=== PATIENT | female | born 1960 | race Caucasian/White ===

== ENCOUNTER 2021-10-21 12:53 | Inpatient (IN) | payer MEDICAID ==
[~2021-10-21] VITALS: Ht 157.5 cm; Wt 72.6 kg
[2021-10-21] MEDS ORDERED: losartan (13:09)
[2021-10-21] MEDS ORDERED: lisinopril (13:09)
[2021-10-21] MEDS ORDERED: ATOR10TA PO (13:09)
[2021-10-21] MEDS ORDERED: metoprolol (13:09)
--- NOTE | 2021-10-21 13:37 | NUR ---
Patient accompanied by caregiver, complaints of right lower ext pain 6/10, headache, denies nausea/vomiting. History of stroke 2 years ago. Vitals stable.
[2021-10-21 13:54] LABS: HEMATOCRIT 40.7 % (31.2-41.9); MEAN CORPUSCULAR HEMOGLOBIN 27.7 uug (24.7-32.8); MEAN CORPUSCULAR VOLUME 81.9 fL (75.5-95.3); PLATELET COUNT (AUTO) 205 K/uL (179-408)
[2021-10-21 14:13] LABS: ALANINE AMINOTRANSFERASE 47 U/L (14-59); ALKALINE PHOSPHATASE 69 U/L (50-136); ASPARTATE AMINOTRANSFERASE 24 U/L (15-37); BILIRUBIN,DIRECT 0.1 mg/dL (0.0-0.2); BILIRUBIN,TOTAL 0.4 mg/dL (0.2-1.0); CARBON DIOXIDE 30 mmol/L (21-32); CHLORIDE 100 mmol/L (98-107); CREATININE 0.6 mg/dL (0.6-1.3); GLUCOSE 106 mg/dL (74-106); POTASSIUM 4.3 mmol/L (3.5-5.1); TOTAL PROTEIN, SERUM 7.2 g/dL (6.4-8.2); UREA NITROGEN, BLOOD 16 mg/dL (7-18)
[2021-10-21] MEDS ORDERED: ASPIRIN 325 MG TABLET PO ONE (14:15)
[2021-10-21] MEDS ORDERED: ASPIRIN 325 MG TABLET ONE (14:31)
--- NOTE | 2021-10-21 14:34 | NUR ---
holding off on repeat EKG, per .
[2021-10-21] MEDS ORDERED: hydrALAZINE HCL 20 MG/1 ML VIAL IV PRN (16:30)
[2021-10-21] MEDS ORDERED: ONDANSETRON 4 MG/2 ML VIAL IV PRN (16:30)
[2021-10-21] MEDS ORDERED: ACETAMINOPHEN 325 MG TABLET PO PRN (16:30)
[2021-10-21] MEDS ORDERED: MORPHINE SULFATE 2 MG/1 ML DISP.SYRIN IV PRN (16:30)
--- NOTE | 2021-10-21 19:54 | NUR ---
pt a/o aware she will be admitted to the hospital, pt denies pain.
[2021-10-21 20:00] VITALS: BP 112/64
--- NOTE | 2021-10-21 20:12 | NUR ---
report given to Osmel XIAO. pt to go to room 317
--- NOTE | 2021-10-21 20:40 | NUR ---
pt transferred via w/c to room 317 with all belongings. Osmel XIAO aware of pt's arrival.
[2021-10-21] MEDS ORDERED: ATORVASTATIN 40 MG TABLET PO SCH (21:00)
[2021-10-21] MEDS: METOPROLOL TARTRATE 25 MG TABLET PO SCH (21:38)
[2021-10-22] VITALS: BP 122/51
[2021-10-22 04:33] VITALS: BP 98/48
--- NOTE | 2021-10-22 07:30 | NUR ---
Alert & oriented. States feeling much better this am. Denies pain or discomfort.
[2021-10-22 07:41] LABS: MEAN CORPUSCULAR HEMOGLOBIN 28.2 uug (24.7-32.8); MEAN CORPUSCULAR VOLUME 81.3 fL (75.5-95.3); PLATELET COUNT (AUTO) 254 K/uL (179-408)
[2021-10-22 07:57] LABS: BILIRUBIN,TOTAL 0.5 mg/dL (0.2-1.0); CREATININE 0.7 mg/dL (0.6-1.3); PHOSPHOROUS 4.1 mg/dL (2.5-4.9); POTASSIUM 4.1 mmol/L (3.5-5.1); TOTAL PROTEIN, SERUM 7.5 g/dL (6.4-8.2)
--- NOTE | 2021-10-22 08:30 | NUR ---
Seen by Dr. Mcnair & Dr. Ramirez. 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 Patient aware and agreeable.
[2021-10-22] MEDS: METOPROLOL TARTRATE 25 MG TABLET PO SCH (08:43)
[2021-10-22] MEDS ORDERED: LOSARTAN POTASSIUM 50 MG TABLET PO SCH (09:00)
[2021-10-22 11:55] VITALS: BP 109/55
--- NOTE | 2021-10-22 13:00 | NUR ---
IV Dc'd. angiocath removed intact. Prepared for discharge. States sister Marielena picking her up.
--- NOTE | 2021-10-22 13:30 | NUR ---
Discharged via w/c, accompanied by Aura Peguero in auto. No c/o discomfort.
== END 2021-10-22 13:20 | disposition home or self-care (01) | DRG 201 ==
LOC: ER 12:53 → MEDSURG3 20:20 → TELE3 20:37
PROVIDERS: ADMIT Internal Medicine; ATTEND Internal Medicine
DX: I47.1 Supraventricular tachycardia (principal); I21.A1 Myocardial infarction type 2; I10 Essential (primary) hypertension; Z20.822 Contact with and (suspected) exposure to COVID-19
CPT/HCPCS: 36415; 71045; 84100; 84443; 84484; 85025; 93005; 93307; A4663; G0378

== ENCOUNTER 2021-11-23 21:09 | Inpatient (IN) | payer MEDICAID ==
[~2021-11-23] VITALS: Ht 152.4 cm; Wt 70.3 kg
[~2021-11-23 21:09] MED LIST: ATOR10TA PO; lisinopril; metoprolol
--- NOTE | 2021-11-23 21:15 | NUR ---
PT BIB [facility] FROM HOME C/O CHEST DISCOMFORT. ON FIELD PT WAS IN SVT OF HR AROUND 166, PARAMEDICS GAVE ADENOSINE 6MG AND CONVERTED. PT NSR UPON ARRIVAL. PT IS A/O X4, NO SOB OR LABORED BREATHING, DENIES PAIN ONLY STATED "I HAVE SOME CHEST DISCOMFORT BUT NO PAIN". CLEAR SPEECH, COMPLETE SENTENCES. DENIES ANY N/V. NO GI/ DISTRESS. NO CHAPMAN/DIZZYNESS.
--- NOTE | 2021-11-23 21:25 | NUR ---
DR. AVALOS AT BEDSIDE, MSE IN PROGRESS.
[2021-11-23] MEDS ORDERED: ASPIRIN 81 MG TAB.CHEW PO ONE (21:45)
[2021-11-23] MEDS ORDERED: NITROGLYCERIN 0.4 MG/TAB BOTTLE SL ONE ×2 (21:45→21:58)
[2021-11-23] MEDS ORDERED: ASPIRIN 81 MG TAB.CHEW ONE (21:57)
[2021-11-23 22:41] LABS: MEAN CORPUSCULAR HEMOGLOBIN 28.3 uug (24.7-32.8); MEAN CORPUSCULAR VOLUME 82.3 fL (75.5-95.3); PLATELET COUNT (AUTO) 211 K/uL (179-408)
--- NOTE | 2021-11-23 22:47 | NUR ---
PT AMBULATED TO RESTROOM STEADY GAIT, DENIES CHAPMAN/DIZZYNESS.
[2021-11-23 23:13] LABS: ALANINE AMINOTRANSFERASE 139 U/L (14-59); ALKALINE PHOSPHATASE 77 U/L (50-136); BILIRUBIN,DIRECT < 0.1 mg/dL (0.0-0.2); BILIRUBIN,TOTAL 0.2 mg/dL (0.2-1.0); CARBON DIOXIDE 31 mmol/L (21-32); CHLORIDE 104 mmol/L (98-107); CREATININE 0.5 mg/dL (0.6-1.3); GLUCOSE 116 mg/dL (74-106); POTASSIUM 3.8 mmol/L (3.5-5.1); TOTAL PROTEIN, SERUM 7.3 g/dL (6.4-8.2); UREA NITROGEN, BLOOD 21 mg/dL (7-18)
[2021-11-24] MEDS ORDERED: NITROGLYCERIN 0.4 MG/TAB BOTTLE SL ONE ×2 (00:21)
--- NOTE | 2021-11-24 00:44 | NUR ---
SPOKE WITH IVY WITH [facility] INFORMED HER OF PT'S TROP AND COVID RESULTS, FAXED OVER CLINICAL SUMMARY TO . [facility] DIRECT # [phone].
[2021-11-24] MEDS ORDERED: FAMOTIDINE. 20 MG/2 ML VIAL IV ONE ×2 (00:45→00:48)
[2021-11-24 00:46] LABS: ASPARTATE AMINOTRANSFERASE 105 U/L (15-37)
[2021-11-24] MEDS ORDERED: ATOR20TA PO (02:31)
[2021-11-24] MEDS ORDERED: HYDR12.55 PO (02:31)
[2021-11-24] MEDS ORDERED: ASPI81TA31 PO (02:31)
[2021-11-24] MEDS ORDERED: LISI40TA13 PO (02:31)
[2021-11-24] MEDS ORDERED: METO-357 PO (02:31)
[2021-11-24] MEDS ORDERED: METO-358 PO (02:31)
[2021-11-24] MEDS ORDERED: FERR325T28 PO (02:31)
[2021-11-24] MEDS ORDERED: MECL-159 PO (02:31)
[2021-11-24] MEDS ORDERED: PANT40TA49 PO (02:31)
--- NOTE | 2021-11-24 02:39 | NUR ---
CALLED [facility] FOR PANEL CALL, TANIKA ESPINO PAGED.
[2021-11-24] MEDS ORDERED: DICYCLOMINE HCL LIQ 10 MG/5 ML UDC PO ONE (03:00)
[2021-11-24] MEDS ORDERED: LIDOCAINE VISCUS 2% 15 ML UDC MM ONE (03:00)
[2021-11-24] MEDS ORDERED: MAG HYDROX/AL HYDROX/SIMETH 30 ML LIQUID UDC PO ONE (03:00)
[2021-11-24] MEDS ORDERED: LIDOCAINE VISCUS 2% 15 ML UDC ONE (03:09)
[2021-11-24] MEDS ORDERED: DICYCLOMINE HCL LIQ 10 MG/5 ML UDC ONE (03:09)
[2021-11-24] MEDS ORDERED: MAG HYDROX/AL HYDROX/SIMETH 30 ML LIQUID UDC ONE (03:09)
[2021-11-24] MEDS ORDERED: ONDANSETRON 4 MG/2 ML VIAL IV PRN (04:30)
[2021-11-24] MEDS ORDERED: MAGNESIUM HYDROXIDE 30 ML LIQUID UDC PO PRN (04:30)
[2021-11-24] MEDS ORDERED: ACETAMINOPHEN 325 MG TABLET PO PRN (04:30)
[2021-11-24] MEDS ORDERED: HYDROCHLOROTHIAZIDE 25 MG TABLET PO ONE (04:30)
--- NOTE | 2021-11-24 06:51 | NUR ---
PT IN BED EYES CLOSED, BREATHING EVEN AND UNLABORED.
--- NOTE | 2021-11-24 07:31 | NUR ---
PT IS RESTING IN BED COMFORTABLY. NO S/S OF DISTRESS AT THIS TIME. DR SCHMIDT EVALUATED THE PT.
[2021-11-24] MEDS ORDERED: METOPROLOL SUCCINATE XL 50 MG TAB.SR.24H PO ONE (07:52)
[2021-11-24] MEDS ORDERED: ASPIRIN 81 MG TAB.CHEW PO SCH (09:00)
[2021-11-24] MEDS ORDERED: MECLIZINE HCL 25 MG TABLET PO SCH (09:00)
[2021-11-24] MEDS ORDERED: LISINOPRIL 10 MG TABLET PO SCH (09:00)
[2021-11-24] MEDS ORDERED: ENOXAPARIN SODIUM 40 MG/0.4 ML DISP.SYRIN SQ SCH (09:00)
[2021-11-24] MEDS ORDERED: METOPROLOL SUCCINATE XL 50 MG TAB.SR.24H PO SCH (09:00)
[2021-11-24] MEDS ORDERED: PANTOPRAZOLE SODIUM 40 MG TABLET.DR PO SCH (09:00)
[2021-11-24] MEDS ORDERED: ASPIRIN 81 MG TAB.CHEW ONE (10:06)
[2021-11-24] MEDS ORDERED: MECLIZINE HCL 25 MG TABLET ONE (10:06)
[2021-11-24] MEDS ORDERED: ENOXAPARIN SODIUM 40 MG/0.4 ML DISP.SYRIN SQ ONE (10:07)
[2021-11-24] MEDS ORDERED: PANTOPRAZOLE SODIUM 40 MG TABLET.DR PO ONE (10:07)
--- NOTE | 2021-11-24 12:01 | NUR ---
NIHARIKA GOMEZ EVALUATED THE PT . PT WAS D/C'd TO HOME. D/C INSTRUCTIONS GIVEN TO THE PT BY NIHARIKA GOMEZ.
[2021-11-24 12:04] VITALS: BP 130/71
[2021-11-24] MEDS ORDERED: ATORVASTATIN 20 MG TABLET PO SCH (21:00)
== END 2021-11-24 12:09 | disposition home or self-care (01) | DRG 201 ==
LOC: ER 21:11 → TRANSITION 11-24 03:00
PROVIDERS: ADMIT Nurse Practitioner Acute Care; ATTEND Nurse Practitioner Acute Care
DX: I47.1 Supraventricular tachycardia (principal); E66.9 Obesity, unspecified; E78.5 Hyperlipidemia, unspecified; I10 Essential (primary) hypertension; I25.10 Atherosclerotic heart disease of native coronary artery without angina pectoris; R07.89 Other chest pain; R74.01 Elevation of levels of liver transaminase levels; Z68.30 Body mass index [BMI] 30.0-30.9, adult; Z20.822 Contact with and (suspected) exposure to COVID-19
CPT/HCPCS: 36415; 71045; 84484; 85025; 93005; G0378; J1650; J3490; J8597

== ENCOUNTER 2022-03-07 18:55 | Emergency (ER) | payer MEDICAID ==
[~2022-03-07] VITALS: Ht 162.6 cm; Wt 66.7 kg
[~2022-03-07 18:55] MED LIST changes: +ASPI81TA31 PO; -ATOR10TA PO; +ATOR20TA PO; +FERR325T28 PO; +HYDR12.55 PO; +LISI40TA13 PO; +MECL-159 PO; +METO-357 PO; +METO-358 PO; +PANT40TA49 PO; -lisinopril; -metoprolol
[2022-03-07] MEDS ORDERED: ADENOSINE 6 MG/2 ML SYR IV ONE ×2 (19:11→19:15)
[2022-03-07 19:25] LABS: HEMATOCRIT 43.4 % (31.2-41.9); MEAN CORPUSCULAR HEMOGLOBIN 27.9 uug (24.7-32.8); MEAN CORPUSCULAR VOLUME 83.4 fL (75.5-95.3); PLATELET COUNT (AUTO) 279 K/uL (179-408)
[2022-03-07 19:35] LABS: CARBON DIOXIDE 27 mmol/L (21-32); CHLORIDE 104 mmol/L (98-107); CREATININE 0.9 mg/dL (0.6-1.3); GLUCOSE 136 mg/dL (74-106); POTASSIUM 3.7 mmol/L (3.5-5.1); UREA NITROGEN, BLOOD 26 mg/dL (7-18)
[2022-03-07] MEDS ORDERED: MAGNESIUM SULFATE/D5W 100 ML IV SCH (19:45)
[2022-03-07 21:14] VITALS: BP 118/67
== END 2022-03-07 21:16 | disposition home or self-care (01) ==
LOC: ER 18:56
DX: I47.1 Supraventricular tachycardia (principal); I10 Essential (primary) hypertension
CPT/HCPCS: 99284; 96374; 71045; 80048; 83735; 85025; 84484; 36415; 93005; J0153; A4663; J7040